=== PATIENT | male | born 1975 | race African-American/Black ===

== ENCOUNTER 2021-02-05 10:14 | Emergency (ER) | payer BC ==
[2021-02-05 10:19] VITALS: BP 141/79; PULSE 90; TEMP 97.9; BMI 32.1
== END 2021-02-05 15:01 | disposition home or self-care (01) ==
LOC: JERFT 10:14
DX: M25.461 Effusion, right knee (principal); M25.572 Pain in left ankle and joints of left foot; M25.571 Pain in right ankle and joints of right foot
CPT/HCPCS: 73562-TC-RT-FY; 73590-TC-RT-FY; 73610-TC-LT-FY; 73610-TC-RT-FY; 73630-TC-LT; 73630-TC-RT-FY; 93971-TC; 99284-25

== ENCOUNTER 2023-03-22 08:31 | Emergency (ER) | payer BC ==
[2023-03-22 08:51] VITALS: BP 126/85; PULSE 71; RESP 16; TEMP 98.2
[2023-03-22] MEDS ORDERED: IBUPROFEN 400 MG TABLET (FP) PO ONE ×3 (09:13→09:17)
[2023-03-22] MEDS ORDERED: LIDOCAINE 5% TOPICAL PATCH TP ONE (09:13)
[2023-03-22] MEDS ORDERED: LIDOCAINE 4% PATCH TP ONE (09:16)
[2023-03-22] MEDS ORDERED: LIDOCAINE PATCH REMOVAL MC SCH (22:00)
== END 2023-03-22 09:23 | disposition home or self-care (01) ==
LOC: JER 08:31
DX: M25.551 Pain in right hip (principal)
CPT/HCPCS: 99283-25